=== PATIENT | female | born 1960 | race Asian ===

== ENCOUNTER 2023-03-12 07:01 | Day surgery (SDC) | payer OTHER ==
[~2023-03-12] VITALS: Ht 149.9 cm; Wt 63.5 kg
[2023-03-12] MEDS ORDERED: SIMETHICONE 40 MG/0.6 ML ML ONE (07:22)
[2023-03-12] MEDS ORDERED: MIDAZOLAM HCL 5 MG/5 ML VIAL ONE (07:23)
[2023-03-12] MEDS ORDERED: fentaNYL CITRATE/PF 100 MCG/2 ML AMP ONE (07:23)
[2023-03-12 10:23] VITALS: BP_SYST 131
== END 2023-03-12 09:45 | disposition home or self-care (01) ==
LOC: SDS 07:01 → SMU 07:03 → EDSEX 08:15 → SDS 09:45
PROVIDERS: ATTEND Internal Medicine
DX: Z12.11 Encounter for screening for malignant neoplasm of colon (principal); D12.2 Benign neoplasm of ascending colon; Z86.010 Personal history of colon polyps; Z79.899 Other long term (current) drug therapy
CPT/HCPCS: 45380; 88305; 99152; G0378; J2250; J3010